=== PATIENT | female | born 1965 | race Caucasian/White ===

== ENCOUNTER → 2017-01-04 | Outpatient (CLI) | payer OTHER | LOC: FIMAGING 10:35 | DX: Z12.31 Encounter for screening mammogram for malignant neoplasm of breast (principal) | CPT/HCPCS: G0202 ==

== ENCOUNTER → 2017-08-26 | Outpatient (CLI) | payer OTHER | LOC: BMCIMAGING 09:31 | PROVIDERS: ATTEND Podiatrist Foot & Ankle Surgery | DX: M25.571 Pain in right ankle and joints of right foot (principal); M77.31 Calcaneal spur, right foot ==

== ENCOUNTER → 2018-12-13 | Outpatient (CLI) | payer OTHER | LOC: BMCIMAGING 13:21 | PROVIDERS: ATTEND Family Medicine | DX: S99.911A Unspecified injury of right ankle, initial encounter (principal) ==